=== PATIENT | male | born 1975 | race Caucasian/White ===

== ENCOUNTER 2016-10-16 04:49 | Inpatient (IN) | payer OTHER ==
[~2016-10-16] VITALS: Ht 177.8 cm; Wt 111.1 kg
[~2016-10-16 04:49] MED LIST: "DEPAKOTE \\\"ER\\\"500 MG" PO; ADULT LOW DOSE81 MG PO; CLARITIN10 MG PO; ELAVIL 25 MG TA25 MG PO; ESOMEPRAZOLE MA20 MG PO; FENOFIBRATE160 MG PO; GLUCOPHAGE1000 MG PO; GLUCOTROL5 MG PO; HYDROCHLOROTHIA25 MG PO; IMDUR ER TAB 3030 MG PO; IMDUR ER TAB 6060 MG PO; LEVOTHYROXINE50 MCG PO; LIPITOR TAB 2020 MG PO; LISINOPRIL20 MG PO; LOPID TAB 600600 MG PO; LOVAZA 1 GM1 G PO; LOVAZA1 GM PO; METFORMIN HCL500 MG PO; METOPROLOL TART50 MG PO; NEURONTIN 400400 MG PO; NEXIUM40 MG PO; NORVASC 5 MG TAB5 MG PO; PLAVIX 75 MG TA75 MG PO; PRAVACHOL40 MG PO; TEGRETOL XR400 MG PO; TRAZODONE HCL150 MG PO
[2016-10-16 06:52] LABS: RED BLOOD COUNT 3.35 M/UL (4.20-5.50); WHITE BLOOD COUNT 5.9 K/UL (4.5-11.0)
[2016-10-16 07:16] LABS: BUN/CREATININE RATIO 8 (0-10)
[2016-10-16] MEDS ORDERED: NITROGLYCERIN0.4 MG SL (12:20)
[2016-10-16] MEDS ORDERED: PLAVIX 75 MG TA75 MG PO (12:21)
[2016-10-16] MEDS ORDERED: ZETIA10 MG PO (12:43)
[2016-10-16] MEDS ORDERED: LORTAB 10-3251 EACH PO (12:43)
[2016-10-16] MEDS ORDERED: LEVAQUIN750 MG PO (12:46)
[2016-10-17 05:15] LABS: HEMOGLOBIN 9.1 gm/dl (14.0-17.5); RED BLOOD COUNT 3.4 M/UL (4.20-5.50)
[2016-10-17 05:28] LABS: BUN/CREATININE RATIO 8 (0-10)
[2016-10-17] MEDS ORDERED: LIPITOR TAB 2020 MG PO (18:32)
[2016-10-17] MEDS ORDERED: TRICOR 145 MG145 MG PO (18:33)
[2016-10-17] MEDS ORDERED: TYLENOL 325MG325 MG PO (18:37)
== END 2016-10-17 20:19 | disposition home or self-care (01) | DRG 205 ==
LOC: ER1 04:49 → ZEROF 09:38 → MED SURG 4 11:56
PROVIDERS: Physician Assistant; Specialist/Technologist Athletic Trainer; ADMIT Internal Medicine Infectious Disease
DX: J98.11 Atelectasis (principal); K85.90 Acute pancreatitis without necrosis or infection, unspecified; E87.2 Acidosis; E78.1 Pure hyperglyceridemia; I10 Essential (primary) hypertension; E66.9 Obesity, unspecified; K76.0 Fatty (change of) liver, not elsewhere classified; D64.9 Anemia, unspecified; Y95 Nosocomial condition; E87.6 Hypokalemia; I25.10 Atherosclerotic heart disease of native coronary artery without angina pectoris; Z95.5 Presence of coronary angioplasty implant and graft; E03.9 Hypothyroidism, unspecified; G47.33 Obstructive sleep apnea (adult) (pediatric); G89.29 Other chronic pain; M54.9 Dorsalgia, unspecified; E86.0 Dehydration; Z91.09 Other allergy status, other than to drugs and biological substances; Z79.82 Long term (current) use of aspirin; Z79.899 Other long term (current) drug therapy; Z68.35 Body mass index [BMI] 35.0-35.9, adult
CPT/HCPCS: 36415; 71020; 80053; 80202; 81001; 82550; 82553; 82962; 83605; 83690; 83735; 83874; 83880; 84132; 84484; 85025; 85027; 85379; 87040; 87086; 93005; 94640; 94664; 96361; 96374; 96375; 99285; J1650; J1956; J2270; J2405; J2543; J3370; J7030; J7040; J7050; J7070; Q9963

== ENCOUNTER → 2020-07-02 | Outpatient (CLI) | payer OTHER ==
[~2020-07-02] MED LIST changes: +AMITRIPTYLINE H25 MG PO; +ASPIR 8181 MG PO; +ASPIRIN 325MG325 MG PO; +ASPIRIN EC81 MG PO; +BASAGLAR K100 UNIT/1 SQ; +BREO ELLIPTA 11 EACH INH; +CENTRUM SILVER PO; +CLOPIDOGREL75 MG PO; +CRESTOR40 MG PO; +DEPAKOTE ER500 MG PO; +FEOSOL325 MG PO; +GLIPIZIDE5 MG PO; +HYDRALAZINE HCL50 MG PO; +IBUPROFEN800 MG PO; +ISOSORBIDE PO; +KEFLEX CAP 500500 MG PO; +KEPPRA XR500 MG PO; +KEPPRA750 MG PO; +KLONOPIN1 MG PO; +LEVAQUIN750 MG PO; +LEVETIRACETAM500 MG PO; +LOPRESSOR 25 MG25 MG PO; +LOPRESSOR 50 MG50 MG PO; +LOPRESSOR100 MG PO; +LORTAB 10-3251 EACH PO; +METFORMIN HCL1000 MG PO; +MIRALAX 119 GR119 GM PO; +MIRAPEX0.25 MG PO; +MIRAPEX0.75 MG PO; +NITROGLYCERIN0.4 MG SL; +NITROSTAT0.4 MG SL; +ONE A DAY VIT PO; +PANTOPRAZOLE SO40 MG PO; +PERCOCET 5-3251 EACH PO; +PLETAL 100 MG100 MG PO; +PRAMIPEXOLE PO; +PRINIVIL20 MG PO; +PROTONIX40 MG PO; +REPATHA INJ INJ; +STEGLATRO15 MG PO; +SUCRALFATE1 GM PO; +SYNTHROID25 MCG PO; +TRICOR 145 MG145 MG PO; +TYLENOL 325MG325 MG PO; +VASCEPA1 GM PO; +VENTOLIN HFA 66.7 GM INH; +VENTOLIN/PROVE0.5 ML INH; +VITAMIN C500 MG PO; +VITAMIN D PO; +VITAMIN D3250 MCG PO; +ZETIA 10 MG TAB10 MG PO; +ZETIA10 MG PO
== END ==
LOC: KOH-I 09:31
DX: S82.891D Other fracture of right lower leg, subsequent encounter for closed fracture with routine healing (principal); X58.XXXD Exposure to other specified factors, subsequent encounter
CPT/HCPCS: 73610; 73630

== ENCOUNTER → 2020-07-16 | Outpatient (CLI) | payer OTHER | LOC: KOH-I 15:22 | DX: S92.351D Displaced fracture of fifth metatarsal bone, right foot, subsequent encounter for fracture with routine healing (principal); X58.XXXD Exposure to other specified factors, subsequent encounter | CPT/HCPCS: 73630 ==

== ENCOUNTER → 2020-08-20 | Outpatient (CLI) | payer OTHER | LOC: KOH-I 14:13 | DX: S92.351D Displaced fracture of fifth metatarsal bone, right foot, subsequent encounter for fracture with routine healing (principal); X58.XXXD Exposure to other specified factors, subsequent encounter | CPT/HCPCS: 73630 ==

== ENCOUNTER → 2020-09-02 | Outpatient (CLI) | payer OTHER | LOC: HEART 5 06-04 14:30 | DX: I25.10 Atherosclerotic heart disease of native coronary artery without angina pectoris (principal); I08.2 Rheumatic disorders of both aortic and tricuspid valves | CPT/HCPCS: 93306 ==

== ENCOUNTER → 2020-10-01 | Outpatient (CLI) | payer OTHER | LOC: KOH-I 15:02 | DX: Z47.89 Encounter for other orthopedic aftercare (principal) | CPT/HCPCS: 73630 ==

== ENCOUNTER → 2021-11-01 | Outpatient (CLI) | payer OTHER | LOC: HEART 5 07:15 | DX: R00.2 Palpitations (principal); R07.9 Chest pain, unspecified; I20.9 Angina pectoris, unspecified | CPT/HCPCS: 78452; A9502; J2785 ==